=== PATIENT | female | born 1975 | race Asian ===

== ENCOUNTER 2018-09-19 08:53 | Day surgery (SDC) | payer OTHER ==
--- NOTE | 2018-09-19 09:13 | ANESTHESIA ---
Pre-Anesthesia VS, & Labs - Diagnosis R Carpal Tunnel Syndrome - Procedure R CTR Vital Signs: Last Vital Signs Temp 36.4 C L 09/19/18 09:05 Pulse 86 09/19/18 09:05 Resp 16 09/19/18 09:05 BP 123/70 09/19/18 09:05 Pulse Ox 100 09/19/18 09:05 Height 4 ft 11 in Weight (kg) 48.99 kg - NPO Other Last Fluid Intake: 2oz apple juice 0600 Last Food Intake: >8 hours - Is Patient ?: No - Lab Results Lab results reviewed: Yes Home Medications and Allergies Home Medications: Ambulatory Orders Calcium Carbonate [Calcium] 600 mg PO 09/11/18 Pnv95/Ferrous Fumarate/FA [ Formula] 1 each PO 09/11/18 diphenhydrAMINE [Benadryl] 25 mg PO Q4-6H PRN 09/11/18 Calcium Carbonate [Calcium] 600 mg PO 09/11/18 Pnv95/Ferrous Fumarate/FA [ Formula] 1 each PO 09/11/18 diphenhydrAMINE [Benadryl] 25 mg PO Q4-6H PRN 09/11/18 Allergies/Adverse Reactions: Allergies Allergy/AdvReac Type Severity Reaction Status Date / Time No Known Drug Allergies Allergy Verified 09/11/18 11:28 Anes History & Medical History - Anesthetic History Anesthesia Complications: reports: No previous complications Family history of Anesthesia Complications: Denies Family history of Malignant Hyperthermia: Denies - Medical History Cardiovascular: reports: None Pulmonary: reports: None Gastrointestinal: reports: None Urinary: reports: Other Musculoskeletal: reports: Other Endocrine/Autoimmune: reports: HyPERthyroidism Skin: reports: None Smoking Status: Never smoker - Surgical History Gynecologic: section Exam General: Alert, Oriented x3, Cooperative Dental: WNL Mouth Openin Fingerbreadth Neck Mobility: Normal Mallampati classification: II Thyromental Distance: 4-6 cm Respiratory: Lungs clear Cardiovascular: Regular rate Neurological: Normal speech Mental/Cognitive Status: Alert/Oriented X3, Normal for patient Cognitive Status: Within normal limits Plan Anesthesia Type: General Consent for Procedure(s) Verified and Reviewed: Yes Code Status: Attempt Resuscitation ASA classification: 1-Healthy patient Is this case an emergency?: No
[2018-09-19 09:16] LABS: HCG UR QUAL NEGATIVE
[2018-09-19] MEDS ORDERED: CEFAZOLIN SODIUM IN 0.9 % NACL 2 GM/100 ML BAG IV ONE (09:16)
[2018-09-19] MEDS ORDERED: LACTATED RINGERS 1,000 ML IV ONE (09:23)
[2018-09-19] MEDS ORDERED: BUPIVACAINE 0.25% PF 10 ML VIAL ONE (10:04)
--- NOTE | 2018-09-19 10:07 | OPERATIVE REPORT ---
Operative Report - Other Other Information/Narrative: Date of Surgery: 19 September 2018 Pre-Op Diagnosis: Right carpal tunnel syndrome Procedure: Right open carpal tunnel release Postop Diagnosis: Right carpal tunnel syndrome Primary Surgeon: Kiran Morillo Secondary Surgeon: None Complications: None Tourniquet Time: 6 minutes EBL: 2 cc Indication For Surgery: 42-year-old female with right carpal tunnel syndrome manifested by painful numbness in the radial aspect of the hand that is worse with provocative maneuvers. She has not responded to nonoperative treatment and desired surgery. The risks, benefits, and alternatives were discussed. Risks include pain, bleeding, infection, damage to nearby structures, numbness, pillar pain, lack of symptom relief, need for further surgery, DVT, PE, stroke, and . Written consent was obtained. The patient was met in the preoperative holding on the day of the procedure. Operative extremity was signed. Consent was verified. They desire to proceed. They were brought to the operating room and placed in the supine position. A well-padded forearm tourniquet was applied. They were prepped and draped in the standard fashion. A surgical timeout was held will be confirmed the patient procedure, identity, allergies, antibiotics, images and laterality. All were in agreement we proceeded. An Esmarch was used to exsanguinate the limb and the tourniquet was elevated to 250 mmHg. A 3cm longitudinal incision was made in line with the ulnar border of the ring finger starting at Beckham's Cardinal line distally. This was just radial to the hook of the hamate. Bipolar electrocautery was used at the skin edge. Sharp dissection was brought down through the palmar fascia. Retractors were placed. The transverse carpal ligament was identified and a knife was used to separate it. The contents of the carpal tunnel were seen. Knife dissection was used to release the ligament as far proximal as could be visualized. Long handled Metzenbaum scissors were then used to create a pocket just superficial to the transverse carpal ligament and a retractor was placed. I then used a long handled Metzenbaum with the tips pointed ulnarly to complete the release 2 cm into the antebrachial fascia. Retractors were then moved distally and I confirmed complete release in the appearance of fat in the palm. A freer elevator was used to confirm complete release both proximally and distally. The wound was packed with a moist gauze and the tourniquet was deflated. After holding for 3 minutes the gauze was removed and bleeding was coming from the skin edge. Bleeding was controlled with bipolar electrocautery. The wound was closed with 3-0 nylon in a horizontal mattress configuration. 3 cc of local anesthetic was placed. A sterile bulky dressing was applied. She was awakened and transferred to the recovery room.
[2018-09-19] MEDS ORDERED: BUPIVACAINE 0.25% PF 10 ML VIAL SUBQ ONE ×2 (10:45→10:51)
[2018-09-19] MEDS ORDERED: ONDANSETRON 4 MG/2 ML VIAL IVP PRN (10:59)
[2018-09-19] MEDS ORDERED: oxyCODONE 5 MG TABLET PO PRN (10:59)
[2018-09-19] MEDS ORDERED: KETOROLAC 30 MG/ML VIAL IVP ONE (11:02)
[2018-09-19] MEDS ORDERED: MIDAZOLAM 2 MG/2 ML VIAL IVP ONE (11:02)
[2018-09-19] MEDS ORDERED: ONDANSETRON 4 MG/2 ML VIAL IVP ONE (11:02)
[2018-09-19] MEDS ORDERED: DEXAMETHASONE 4 MG/ML VIAL IVP ONE (11:02)
[2018-09-19] MEDS ORDERED: fentaNYL 100 MCG/2 ML VIAL IVP ONE (11:02)
[2018-09-19] MEDS ORDERED: LIDOCAINE-MPF 2% 5 ML VIAL IM ONE (11:02)
[2018-09-19] MEDS ORDERED: PROPOFOL 200 MG/20 ML VIAL IVP ONE (11:02)
[2018-09-19 11:57] VITALS: BP 121/70
== END 2018-09-19 08:54 | disposition home or self-care (01) ==
LOC: SDS 08:53
PROVIDERS: ATTEND Orthopaedic Surgery
PROC: 01N50ZZ Release Median Nerve, Open Approach (ICD-10-PCS; principal; 2018-09-19 10:15)
DX: G56.01 Carpal tunnel syndrome, right upper limb (principal)
CPT/HCPCS: 64721; 81025; J0690; J7120

== ENCOUNTER 2018-11-26 17:30 | Emergency (ER) | payer OTHER ==
[2018-11-26 17:35] VITALS: BP 158/104
--- NOTE | 2018-11-26 17:39 | ED Physician Documentation ---
PD HPI ABD PAIN - Stated complaint Stated Complaint: FEMALE /FREQ URINATION - Chief complaint Chief Complaint: Abd Pain - History obtained from History obtained from: Patient - History of Present Illness Timing - onset: Today (Developed urinary burning and frequency today with a little bit of incontinence. 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 - Present Medications Home Medications: Ambulatory Orders Medication Instructions Recorded Confirmed Calcium Carbonate [Calcium] 600 mg PO 09/11/18 Pnv95/Ferrous Fumarate/FA 1 each PO 09/11/18 [ Formula] diphenhydrAMINE [Benadryl] 25 mg PO Q4-6H PRN 09/11/18 09/19/18 Nitrofurantoin Monohyd/M-Cryst 100 mg PO BID #10 capsule 11/26/18 [Macrobid 100 mg Capsule] Phenazopyridine HCl [Pyridium] 200 mg PO TID PRN #6 tablet 11/26/18 - Allergies Allergies/Adverse Reactions: Allergies Allergy/AdvReac Type Severity Reaction Status Date / Time No Known Drug Allergies Allergy Verified 11/26/18 17:35 - Social History Does the pt smoke?: No Smoking Status: Never smoker Does the pt drink ETOH?: No Does the pt have substance abuse?: No - Immunizations Immunizations are current?: Yes - POLST Patient has POLST: No PD ED PE NORMAL - Vitals Vital signs reviewed: Yes - General General: Alert and oriented X 3, No acute distress - Abdomen Abdomen: Normal bowel sounds, Soft, Non tender - Back Back: No CVA TTP - Neuro Neuro: Alert and oriented X 3 Results - Vitals Vitals: Vital Signs - 24 hr 11/26/18 11/26/18 17:33 17:37 Temperature 36.4 C L Heart Rate 85 Respiratory 15 Rate Blood Pressure 158/104 H O2 Saturation 100 Oxygen O2 Source Room air - Labs Labs: Laboratory Tests 11/26/18 18:00 Urine Color LT RED Urine Clarity CLOUDY Urine pH 7.0 Ur Specific [place] <=1.005 Urine Protein NEGATIVE Urine Glucose (UA) NEGATIVE Urine Ketones NEGATIVE Urine Occult Blood LARGE H Urine Nitrite NEGATIVE Urine Bilirubin NEGATIVE Urine Urobilinogen 0.2 (NORMAL) Ur Leukocyte Esterase MODERATE H Urine RBC 6-10 H Urine WBC >25 H Urine WBC Clumps PRESENT Ur Squamous Epith Cells FEW Squamous Urine Bacteria Few Ur Microscopic Review INDICATED Urine Culture Comments INDICATED Urine HCG, Qual NEGATIVE Departure - Departure Disposition: Home, Self Care Clinical Impression: Cystitis Condition: Good Record reviewed to determine appropriate education?: Yes Instructions: ED UTI Cystitis Female Prescriptions: Nitrofurantoin Monohyd/M-Cryst [Macrobid 100 mg Capsule] 100 mg PO BID #10 capsule Phenazopyridine HCl [Pyridium] 200 mg PO TID PRN #6 tablet PRN Reason: dysuria Comments: We will culture your urine, the results should be done in 48-72 hours. If an antibiotic change is necessary we will call you. Return if worse in the meantime, especially if you develop increasing flank pain, fevers, or cannot keep down the medication. Your blood pressure was elevated today on check into the emergency department. This does not mean that you have hypertension, it is a common phenomenon to come to the emergency department and have elevated blood pressure. I recommend that you see your primary care physician within the week to have it rechecked when you are feeling better. Discharge Date/Time: 11/26/18 18:29
[2018-11-26 18:08] LABS: BILIRUBIN,URINE NEGATIVE (NEGATIVE); GLUCOSE, URINE (UA) NEGATIVE (NEGATIVE); KETONES,URINE (UA) NEGATIVE (NEGATIVE); LEUKOCYTE ESTERASE, URINE MODERATE (NEGATIVE); NITRITE,URINE NEGATIVE (NEGATIVE); OCCULT BLOOD,URINE LARGE (NEGATIVE); PROTEIN,URINE NEGATIVE (NEGATIVE); UROBILINOGEN,URINE 0.2 (NORMAL) E.U./dL (NORMAL)
[2018-11-26 18:12] LABS: CLARITY,URINE CLOUDY (CLEAR); HCG UR QUAL NEGATIVE
[2018-11-26] MEDS ORDERED: PHENAZOPYRIDINE 100 MG TABLET PO STA (18:15)
[2018-11-26] MEDS ORDERED: NITROFURANTOIN MACRO 100 MG CAPSULE PO STA ×2 (18:15→18:17)
[2018-11-26 18:23] LABS: SQUAMOUS EPITHELIAL CELL,UR FEW Squamous (<= Few)
[2018-11-26 18:24] LABS: BACTERIA,URINE Few /HPF (None Seen); WBC CLUMPS,URINE PRESENT
== END 2018-11-26 18:29 | disposition home or self-care (01) ==
LOC: ED 17:30
DX: N30.90 Cystitis, unspecified without hematuria (principal); R03.0 Elevated blood-pressure reading, without diagnosis of hypertension
CPT/HCPCS: 81001; 81025; 87077; 87086; 87181; 99283; A9270; 81003

== ENCOUNTER 2021-05-17 20:41 | Emergency (ER) | payer OTHER ==
[2021-05-17 21:05] LABS: BILIRUBIN,URINE NEGATIVE (NEGATIVE); GLUCOSE, URINE (UA) NEGATIVE (NEGATIVE); KETONES,URINE (UA) NEGATIVE (NEGATIVE); LEUKOCYTE ESTERASE, URINE MODERATE (NEGATIVE); NITRITE,URINE NEGATIVE (NEGATIVE); OCCULT BLOOD,URINE LARGE (NEGATIVE); PROTEIN,URINE NEGATIVE (NEGATIVE); UROBILINOGEN,URINE 0.2 (NORMAL) E.U./dL (NORMAL)
[2021-05-17 21:07] LABS: CLARITY,URINE HAZY (CLEAR); HCG UR QUAL NEGATIVE
--- NOTE | 2021-05-17 21:17 | ED Physician Documentation ---
History of Present Illness - Stated complaint Stated Complaint: FEMALE - Additonal information Additional information: 45-year-old female presents emergency department for evaluation of 24 hours of dysuria urgency and frequency. Feels like she does not fully empty her bladder. She denies fevers flank pain or vomiting. This feels similar to previous urinary tract infections. Most recent one however was about 2 years ago. She otherwise appears very well. Review of Systems Constitutional: reports: Reviewed and negative Ears: reports: Reviewed and negative Throat: reports: Reviewed and negative Cardiac: reports: Reviewed and negative Respiratory: reports: Reviewed and negative GI: reports: Reviewed and negative : reports: Dysuria, Frequency, Hematuria Skin: reports: Reviewed and negative Musculoskeletal: reports: Reviewed and negative PD PAST MEDICAL HISTORY - Past Medical History Past Medical History: Yes Cardiovascular: None Respiratory: None Endocrine/Autoimmune: HyPERthyroidism GI: None : Chronic bladder infection, Other HEENT: None Psych: Depression, Anxiety Musculoskeletal: Other Derm: None - Past Surgical History 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 - Present Medications Home Medications: Ambulatory Orders Medication Instructions Recorded Confirmed Calcium Carbonate [Calcium] 600 mg PO 09/11/18 Pnv No.95/Ferrous Fum/Folic AC 1 each PO 09/11/18 [ Formula] Phenazopyridine HCl [Pyridium] 200 mg PO TID PRN #6 tablet 11/26/18 Amitriptyline HCl 50 mg PO DAILY 05/17/21 05/17/21 Cefpodoxime Proxetil [Vantin] 100 mg PO Q12H #14 tablet 05/17/21 - Allergies Allergies/Adverse Reactions: Allergies Allergy/AdvReac Type Severity Reaction Status Date / Time No Known Drug Allergies Allergy Verified 05/17/21 20:49 - Social History Does the pt smoke?: No Smoking Status: Never smoker Does the pt drink ETOH?: No Does the pt have substance abuse?: No - Immunizations Immunizations are current?: Yes - POLST Patient has POLST: No PD ED PE NORMAL - General General: Alert and oriented X 3, No acute distress - HEENT HEENT: PERRL - Neck Neck: Supple, no meningeal sign, No adenopathy - Cardiac Cardiac: RRR, No murmur - Respiratory Respiratory: No respiratory distress, Clear bilaterally - Abdomen Abdomen: Normal bowel sounds, Soft. No: Non tender (Mild suprapubic tenderness. No guarding or rebound. No flank or CVA tenderness. Negative Clarke's negative McBurney's) - Back Back: No CVA TTP, No spinal TTP - Derm Derm: Normal color, Warm and dry, No rash - Extremities Extremities: No deformity, No tenderness to palpate, Normal ROM s pain - Neuro Neuro: Alert and oriented X 3, gold charmer 2-12 intact, No motor deficit Eye Opening: Spontaneous Motor: Obeys Commands Verbal: Oriented GCS Score: 15 Results - Vitals Vitals: Vital Signs - 24 hr 05/17/21 20:49 Temperature 36.5 C Heart Rate 69 Respiratory 15 Rate Blood Pressure 144/80 H O2 Saturation 100 Oxygen O2 Source Room air - Labs Labs: Laboratory Tests 05/17/21 20:45 Urine Color LT RED Urine Clarity HAZY Urine pH 7.0 Ur Specific [place] 1.010 Urine Protein NEGATIVE Urine Glucose (UA) NEGATIVE Urine Ketones NEGATIVE Urine Occult Blood LARGE H Urine Nitrite NEGATIVE Urine Bilirubin NEGATIVE Urine Urobilinogen 0.2 (NORMAL) Ur Leukocyte Esterase MODERATE H Urine RBC 6-10 H Urine WBC 11-25 H Ur Squamous Epith Cells RARE Squamous Urine Bacteria Few Ur Microscopic Review INDICATED Urine Culture Comments INDICATED Urine HCG, Qual NEGATIVE PD MEDICAL DECISION MAKING - ED course Complexity details: reviewed results, considered differential, d/w patient ED course: 45-year-old female presents emergency department with 24 hours of dysuria urgency and frequency. No flank pain fevers or vomiting. UA is consistent with early cystitis and infection. Given the lack of abdominal pain fevers or vomiting advanced imaging deferred. Low suspicion for pyelo or renal colic. Patient will be started on Vantin. Prescription sent to [facility]. Emergent return precautions otherwise discussed. Departure - Departure Disposition: 01 Home, Self Care Clinical Impression: Acute cystitis Qualifiers: Hematuria presence: with hematuria Qualified Code(s): N30.01 - Acute cystitis with hematuria Condition: Stable Record reviewed to determine appropriate education?: Yes Instructions: ED Infec Bladder Female Ch Follow-Up: ANTONIO MAC MD [Primary Care Provider] - Prescriptions: Cefpodoxime Proxetil [Vantin] 100 mg PO Q12H #14 tablet Comments: Rosalinda you were seen today in the emergency department for urinary difficulty pain and frequency. Your urine is consistent with early infection. I have sent a prescription for medication called Cefpodoxime or Vantin to the [facility] pharmacy in [place]. Your first dose was given tonight here in the emergency department. Please fill tomorrow and begin taking as directed. With the antibiotics I would expect improved symptoms over the next 24 to 48 hours. If despite the antibiotics you are having worsening symptoms, develop any fevers, flank pain vomiting or severe belly pain then please return immediately to the ER for a second evaluation.
[2021-05-17 21:19] LABS: BACTERIA,URINE Few /HPF (None Seen); SQUAMOUS EPITHELIAL CELL,UR RARE Squamous (<= Few)
[2021-05-17] MEDS ORDERED: CEFPODOXIME PROXETIL 100 MG TABLET PO STA (21:29)
[2021-05-17 21:41] VITALS: BP 130/71
== END 2021-05-17 21:37 | disposition home or self-care (01) ==
LOC: ED 20:41
DX: N30.01 Acute cystitis with hematuria (principal)
CPT/HCPCS: 81001; 81025; 87077; 87086; 87181; 99282; 99283; A9270; 81003

== ENCOUNTER 2022-06-25 09:13 | Emergency (ER) | payer OTHER ==
[2022-06-25 09:23] VITALS: BP 137/88
[2022-06-25 09:35] LABS: BILIRUBIN,URINE NEGATIVE (NEGATIVE); GLUCOSE, URINE (UA) NEGATIVE (NEGATIVE); KETONES,URINE (UA) NEGATIVE (NEGATIVE); LEUKOCYTE ESTERASE, URINE TRACE (NEGATIVE); NITRITE,URINE POSITIVE (NEGATIVE); OCCULT BLOOD,URINE MODERATE (NEGATIVE); PROTEIN,URINE NEGATIVE (NEGATIVE); UROBILINOGEN,URINE 0.2 (NORMAL) E.U./dL (NORMAL)
--- NOTE | 2022-06-25 09:50 | ED Physician Documentation ---
PD HPI FEMALE - Stated complaint Stated Complaint: FEMALE - Chief complaint Chief Complaint: UTI - History obtained from History obtained from: Patient - History of Present Illness Timing - onset: Yesterday Timing - details: Abrupt onset, Still present Associated symptoms: Dysuria, Urinary frequency. 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 Medications Home Medications: Ambulatory Orders Medication Instructions Recorded Confirmed Calcium Carbonate [Calcium] 600 mg PO DAILY 09/11/18 06/25/22 Pnv No.95/Ferrous Fum/Folic AC 1 each PO DAILY 09/11/18 06/25/22 [ Formula] Phenazopyridine HCl [Pyridium] 200 mg PO TID PRN #6 tablet 11/26/18 06/25/22 Amitriptyline HCl 50 mg PO DAILY 05/17/21 06/25/22 Phenazopyridine HCl [Pyridium] 100 mg PO TID PRN #15 tablet 06/25/22 cephALEXin [Keflex] 500 mg PO TID #20 cap 06/25/22 - Allergies Allergies/Adverse Reactions: Allergies Allergy/AdvReac Type Severity Reaction Status Date / Time No Known Drug Allergies Allergy Verified 06/25/22 09:23 - Social History Does the pt smoke?: No Smoking Status: Never smoker Does the pt drink ETOH?: No Does the pt have substance abuse?: No - Immunizations Immunizations are current?: Yes - POLST Patient has POLST: No PD ED PE NORMAL - Vitals Vital signs reviewed: Yes - General General: Alert and oriented X 3, No acute distress, Well developed/nourished - Abdomen Abdomen: Soft, Non tender - Female Female : Deferred - Back Back: No CVA TTP - Derm Derm: Normal color, Warm and dry Results - Vitals Vitals: Vital Signs - 24 hr 06/25/22 09:21 Temperature 36.8 C Heart Rate 100 Respiratory 15 Rate Blood Pressure 137/88 H O2 Saturation 100 Oxygen O2 Source Room air - Labs Labs: Laboratory Tests 06/25/22 09:29 Urine Color YELLOW Urine Clarity CLEAR Urine pH 6.0 Ur Specific [place] <=1.005 Urine Protein NEGATIVE Urine Glucose (UA) NEGATIVE Urine Ketones NEGATIVE Urine Occult Blood MODERATE H Urine Nitrite POSITIVE H Urine Bilirubin NEGATIVE Urine Urobilinogen 0.2 (NORMAL) Ur Leukocyte Esterase TRACE H Urine RBC 0-5 Urine WBC 11-25 H Ur Squamous Epith Cells NONE SEEN Urine Bacteria Rare Ur Microscopic Review INDICATED Urine Culture Comments INDICATED Urine HCG, Qual NEGATIVE PD Medical Decision Making - ED course Complexity details: considered differential (has symptoms c/w uTI and her UA is showing signs of UTI. Can treat for that. ), d/w patient Departure - Departure Disposition: 01 Home, Self Care Clinical Impression: UTI (urinary tract infection) Qualifiers: Urinary tract infection type: acute cystitis Hematuria presence: without hematuria Qualified Code(s): N30.00 - Acute cystitis without hematuria Condition: Stable Record reviewed to determine appropriate education?: Yes Instructions: ED UTI Cystitis Female Follow-Up: ANTONIO MAC MD [Primary Care Provider] - Prescriptions: cephALEXin [Keflex] 500 mg PO TID #20 cap Phenazopyridine HCl [Pyridium] 100 mg PO TID PRN #15 tablet PRN Reason: Abdominal Pain Comments: Your urine sample does show signs of infection consistent with your symptoms. Stay well-hydrated. You can use Tylenol or ibuprofen for discomfort. You can continue using the phenazopyridine 3 times daily as needed for discomfort as well. We will add cephalexin antibiotic 3 times daily for the next 5 to 7 days. This should clear the infection. I would anticipate improvement over the or the next 2 to 3 days and resolution around few days. Recheck if not improving in the next few days and return if worsening pain or associated with fever, vomiting, back pain, other concerns. I sent your prescription to [facility] pharmacy. We will do a culture of the urine. We will call you in a couple of days if we need to change the antibiotics based on that. Otherwise if you are on the right antibiotic we typically do not call you. Discharge Date/Time: 06/25/22 10:17
[2022-06-25 09:53] LABS: CLARITY,URINE CLEAR (CLEAR); HCG UR QUAL NEGATIVE
[2022-06-25 09:54] LABS: BACTERIA,URINE Rare /HPF (None Seen); RBC,URINE 0-5 /HPF (0-5); SQUAMOUS EPITHELIAL CELL,UR NONE SEEN (<= Few)
[2022-06-25] MEDS ORDERED: cephALEXin 250 MG CAPSULE PO STA (10:03)
[2022-06-25] MEDS ORDERED: ACETAMINOPHEN 325 MG TABLET PO STA (10:03)
== END 2022-06-25 10:17 | disposition home or self-care (01) ==
LOC: ED 09:13
DX: N30.00 Acute cystitis without hematuria (principal)
CPT/HCPCS: 81001; 81025; 87086; 99283; A9270; 81003

== ENCOUNTER 2022-08-26 08:00 | Outpatient (CLI) | payer OTHER | END 2022-08-26 23:59 | disposition home or self-care (01) | LOC: LAB.N 08:00 | PROVIDERS: ATTEND Registered Nurse | DX: R30.0 Dysuria (principal) | CPT/HCPCS: 87077; 87086; 87181 ==

== ENCOUNTER 2022-12-11 08:00 | Outpatient (CLI) | payer OTHER | END 2022-12-11 23:59 | disposition home or self-care (01) | LOC: LAB.WCP 08:00 | PROVIDERS: ATTEND Physician Assistant Medical | DX: N30.00 Acute cystitis without hematuria (principal) | CPT/HCPCS: 87086 ==

== ENCOUNTER 2023-05-17 15:47 | Emergency (ER) | payer OTHER ==
[2023-05-17 16:13] VITALS: BP 151/93; O2SAT 100
--- NOTE | 2023-05-17 18:13 | ED Physician Documentation ---
PD HPI SKIN - Stated complaint Stated Complaint: RT HAND LAC - Chief complaint Chief Complaint: Laceration - Additional information Additional information: 47-year-old female presents to the emergency department for left ring and middle finger avulsion. 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 She said that she is not any blood thinners tetanus shot up-to-date. 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 - Present Medications Home Medications: Ambulatory Orders Medication Instructions Recorded Confirmed Amitriptyline HCl 50 mg PO DAILY 05/17/21 06/25/22 Tolterodine Tartrate [Tolterodine 2 mg PO DAILY 05/17/23 Tartrate ER] cephALEXin [Keflex] 500 mg PO Q6H 7 Days #28 cap 05/17/23 oxyCODONE [Roxicodone] 5 mg PO Q4-6H PRN #12 tablet 05/17/23 - Allergies Allergies/Adverse Reactions: Allergies Allergy/AdvReac Type Severity Reaction Status Date / Time No Known Drug Allergies Allergy Verified 05/17/23 16:08 - Social History Does the pt smoke?: No Smoking Status: Never smoker Does the pt drink ETOH?: No Does the pt have substance abuse?: No - Immunizations Immunizations are current?: Yes - POLST Patient has POLST: No PD ED PE NORMAL - Vitals Vital signs reviewed: Yes - General General: Alert and oriented X 3, No acute distress, Well developed/nourished - Extremities Extremities: Other - Free text exam Free text exam: Left fourth (ring finger): Avulsion to the volar aspect of the tip of her finger involving her fingernail. Nonrepairable, bleeding controlled. Full flexion full extension Left third finger (middle finger): almost complete Fingertip avulsion starting at the base of the nail, attached at the palmar aspect of the finger tip. Pt able to flex and extend DIP, distal finger is pale. Results - Vitals Vitals: Oxygen O2 Source Room air - Rads (name of study) left hand x-ray Relevant Findings:: Final report received, EMP independent interpretation of test (Communicated and displaced fracture of the third distal phalanx tuft) Procedures - Laceration (location) left third finger Length in cm: 2 Wound type: Curved, Flap, Into subcut fat, Into muscle, Clean, Exposure of bone Neurovascular status: Other (sensory is not intact) Anesthesia: Marcaine 0.5%, Other (digital block of the third finger) Wound preparation: Hibiclens, Irrigated copiously NS, Wound explored, To the base, Multiple flaps aligned Skin layer closure: Nylon, Sutures - enter # (9), Other (three sutures into the base of the fingernail) Other: Patient tolerated well, Dressing applied, Tetanus UTD, Other (tip of finger remains pale. fingernail does not have capillar refill.) PD Medical Decision Making - ED course ED course: 47-year-old female presents emergency department for injury to her third and fourth finger due to a frozen food department manager The ring finger tip has an avulsion involving the nail. It is superficial and there is nothing to repair no sutures required. Dermabond was applied to the avulsion. The middle finger tip had an almost complete finger Tip avulsion. 9 sutures were used for repair the middle finger injury. The avulsion starts at volar aspect of the finger just below the fingernail, the flap is connected at the palmar aspect of the finger. X-ray shows that there was bone involved because of this 1 dose of IM Unasyn was administered. See procedure note for further details. Total of 9 stitches was used to repair the finger. After repair there was no capillary refill of the fingernail and the tip did appear to be pale. Finger splint and bulky dressing was applied to the tip of the finger. Patient and patient's was informed that there is a possibility that the tip of her finger may end up falling off but only time will tell. A referral was sent to Dr. Rincon's office at [facility] in [place] who is a hand specialist. They were also given his contact information to call them first thing tomorrow morning to get an appoint with them soon as possible. Patient was sent home with a Keflex antibiotic. I am prescribing a short course of short-acting opioid pain medication for this patient. 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 I have discussed that the opioids are for short term therapy only, and will not be refilled from the ED. She was given strict ER return precautions Departure - Departure Disposition: 01 Home, Self Care Clinical Impression: Finger avulsion Qualifiers: Encounter type: initial encounter Qualified Code(s): S61.209A - Unspecified open wound of unspecified finger without damage to nail, initial encounter Instructions: ED Laceration All Prescriptions: cephALEXin [Keflex] 500 mg PO Q6H 7 Days #28 cap oxyCODONE [Roxicodone] 5 mg PO Q4-6H PRN #12 tablet PRN Reason: Pain >8 Comments: Come back for any signs of infection which would include: Redness, swelling, drainage, increased pain, or fevers. You can wash it soap and waterMy laceration instructions twice a day. Keep it covered and moist with bacitracin ointment which is available over the counter; avoid neosporin. I have sent a referral to Dr. Francis Rincon hand specialist with [facility], he has your phone number and your 's phone number but their office phone number just in case they do not get a hold of you is [phone]. I have sent a prescription of Keflex to [facility] he should take this twice a day for the next 7 days. You should have your sutures removed in the next 10 days. Forms: PCP List Discharge Date/Time: 05/17/23 19:45
[2023-05-17] MEDS: BUPIVACAINE 0.5% PF 10 ML VIAL SUBQ STA (18:18)
--- NOTE | 2023-05-17 18:41 | XRAY Report ---
PROCEDURE: Hand 1-2V RT INDICATIONS: right 3rd and 4th finger avulsion TECHNIQUE: 2 views of the hand(s) acquired. COMPARISON: None. FINDINGS: Bones: Comminuted and displaced fracture involving the distal tuft of the third distal phalanx. No s uspicious bony lesions. Soft tissues: No suspicious soft tissue calcifications or masses. Soft tissue swelling of the thir d distal phalanx. IMPRESSION: Comminuted and displaced fracture of the third distal phalanx tuft. Mild lucency of the cortex of the fourth distal phalanx tuft, nondisplaced fracture is not excluded. Reviewed by: Ariel Gee MD on 05/17/2023 6:40 PM PST Approved by: Ariel Gee MD on 05/17/2023 6:40 PM PST Station ID: [id number]
[2023-05-17] MEDS: ceFAZolin 1 GM VIAL IM STA (19:35)
== END 2023-05-17 19:45 | disposition home or self-care (01) ==
LOC: ED 15:47
DX: S62.632B Displaced fracture of distal phalanx of right middle finger, initial encounter for open fracture (principal); S61.314A Laceration without foreign body of right ring finger with damage to nail, initial encounter; W29.0XXA Contact with powered kitchen appliance, initial encounter; Y93.G1 Activity, food preparation and clean up; Y92.89 Other specified places as the place of occurrence of the external cause; Y99.0 Civilian activity done for income or pay; E05.90 Thyrotoxicosis, unspecified without thyrotoxic crisis or storm; Z79.899 Other long term (current) drug therapy
CPT/HCPCS: 13131; 99284